=== PATIENT | female | born 1990 ===

== ENCOUNTER 2018-03-31 20:43 | Emergency (ER) | payer SELFPAY ==
[2018-03-31 21:08] VITALS: PULSE 84; O2SAT 98
[2018-03-31 21:44] LABS: BASO % 0.5 % (0.0-2.0); EOS # 0.1 K/uL (0.0-0.7); EOS % 1.3 % (0.0-4.0); HEMOGLOBIN 13.2 g/dL (11.0-16.0); LYMPH # 2.3 K/uL (1.0-4.3); LYMPH % 27.3 % (20.0-40.0); MEAN CELL VOLUME 89.7 fL (81.0-99.0); MEAN CORPUSCULAR HEMOGLOBIN 31.2 pg (27.0-31.0); MEAN CORPUSCULAR HGB CONC 34.8 g/dL (33.0-37.0); MEAN PLATELET VOLUME 7.1 fL (7.2-11.7); MONO # 0.6 K/uL (0.0-0.8); MONO % 7.3 % (0.0-10.0); NEUT # 5.3 K/uL (1.8-7.0); NEUT % 63.6 % (50.0-75.0); RBC 4.25 Mil/uL (3.80-5.20); RED CELL DISTRIBUTION WIDTH 12.9 % (11.5-14.5); WHITE BLOOD COUNT 8.3 K/uL (4.8-10.8)
[2018-03-31 21:52] LABS: SQUAMOUS EPITHIAL 1 /hpf (0-5); URINE AMORPHOUS SEDIMENT MODERATE /ul (<OCC); URINE BILIRUBIN NEGATIVE (NEGATIVE); URINE BLOOD 2+ (NEGATIVE); URINE CLARITY Hazy (Clear); URINE COLOR Yellow (YELLOW); URINE GLUCOSE (UA) NORMAL (Normal); URINE LEUKOCYTE ESTERASE NEG Leu/uL (Negative); URINE PROTEIN NEGATIVE (NEGATIVE); URINE UROBILINOGEN NORMAL mg/dL (0.2-1.0)
--- NOTE | 2018-03-31 22:12 | C.PDOC ---
History Of Present Illness 27-year-old female, who is currently around 8 weeks , presents to the ED for evaluation of vaginal bleeding. Patient states she experienced vaginal bleeding two weeks ago, and was evaluated by her ENVIRONMENTAL STUDIES FACULTY MEMBER and told it was secon andrew to implantation. Patient states she had a normal ultrasound at her OB office two weeks ago. Patient notes she now has clots, and presents for further evaluation. Patient states this is her first . She denies abdominal pain, nausea, vomiting, dysuria, changes in bowel habits. Time Seen by Provider: 03/31/18 21:15 Chief Complaint (Nursing): Female Genitourinary History Per: Patient History/Exam Limitations: no limitations Onset/Duration Of Symptoms: Days Current Symptoms Are (Timing): Still Present Associated Symptoms: denies: Nausea, Vomiting, Diarrhea, Constipation, Urinary Symptoms Additional History Per: Patient Abnormal Vaginal Bleeding: Yes Past Medical History Reviewed: Historical Data, Nursing Documentation, Vital Signs Vital Signs: Last Vital Signs Temp 98.5 F 03/31/18 21:06 Pulse 84 03/31/18 21:06 Resp 18 03/31/18 21:06 BP 115/76 03/31/18 21:06 Pulse Ox 98 03/31/18 21:06 - Medical History PMH: No Chronic Diseases Surgical History: No Surg Hx Family History: States: Unknown Family Hx - Social History Hx Alcohol Use: No Hx Substance Use: No - Immunization History Hx Tetanus Toxoid Vaccination: No Hx Influenza Vaccination: No Hx Pneumococcal Vaccination: No Review Of Systems Constitutional: Negative for: Fever Cardiovascular: Negative for: Chest Pain Respiratory: Negative for: Cough, SOB with Excertion, Wheezing Gastrointestinal: Negative for: Nausea, Vomiting, Abdominal Pain, Diarrhea, Constipation Genitourinary: Positive for: Vaginal Bleeding. Negative for: Dysuria, Frequency Musculoskeletal: Negative for: Back Pain Physical Exam - Physical Exam Appears: Well, Non-toxic, No Acute Distress Skin: Normal Color, Warm, Dry Head: Atraumatic, Normacephalic Eye(s): bilateral: Normal Inspection Oral Mucosa: Moist Neck: Supple Chest: Symmetrical, No Deformity, No Tenderness Cardiovascular: Rhythm Regular, No Murmur Respiratory: Normal Breath Sounds, No Rales, No Rhonchi, No Wheezing Gastrointestinal/Abdominal: Soft, No Tenderness, No Guarding, No Rebound Back: Normal Inspection, No CVA Tenderness Pelvic: Other (deferred) Extremity: Normal ROM, Capillary Refill (less than 2 seconds ) Neurological/Psych: Oriented x3, Normal Speech, Normal Cognition Gait: Steady ED Course And Treatment - Laboratory Results Result Diagrams: 03/31/18 21:39 O2 Sat by Pulse Oximetry: 98 (on RA) Pulse Ox Interpretation: Normal Medical Decision Making Medical Decision Making: Progress: Bloodwork, urinalysis, and transvaginal ultrasound ordered. 11:01PM U/S shows "single IUP with gestational age measuring 6 weeks 1 day by CRL. No f etal heart motion is detected, suspicious for demise. Right ovarian corpus luteal cyst." BHC, Blood type O+ Used short order fry cook to explain to patient and my concern for demise/miscarriage. They understand the need to follow-up with business reporting developer for further evaluation and repeat bhcg and ultrasound. Disposition - Disposition Disposition: HOME/ ROUTINE Disposition Time: 23:05 Condition: GOOD Additional Instructions: Follow-up with your grey tender within 2-3 days. Return to ED if condition worsens. Instructions: Threatened Miscarriage Forms: [email or web address] (Greenlandic) - Clinical Impression Clinical Impression: Threatened miscarriage - Scribe Statement The provider has reviewed the documentation as recorded by the Scribe (Christine Romero) Provider Attestation: All medical record entries made by the Scribe were at my direction and personally dictated by me. I have reviewed the chart and agree that the record accurately reflects my personal performance of the history, physical exam, medical decision making, and the department course for this patient. I have also personally directed, reviewed, and agree with the discharge instructions and disposition.
[2018-04-01 00:13] VITALS: BP 120/72; RESP 20; TEMP 98.6
--- NOTE | 2018-04-01 11:30 | US ---
Date of service: 03/31/2018 PROCEDURE: OB Pelvic Ultrasound HISTORY: , bleeding COMPARISON: None available. FINDINGS: UTERUS: Single intrauterine gestation. CRL measures 0.41 cm equivalent to 6 weeks and 1 day of gestational age. cardiac activity is not documented on the current examination. Gestational sac diameter measures 1.71 cm equivalent to 6 weeks and 0 days of gestational age. age (Ultrasound estimated): 6 weeks and 1 day Date of delivery (Ultrasound estimated) : 11/23/2018 Mariia-gestational hemorrhage: None. Uterus measures 8.8 x 4.6 x 5.5 cm. No mass CERVIX: Long and closed. No cervical abnormality seen. RIGHT OVARY: Measures 2.7 x 1.8 x 2.4 cm. No mass. Normal flow. There is a 1.2 x 1.1 x 1.3 cm corpus luteum cyst. LEFT OVARY: Measures 2.0 x 1.6 x 1.9 cm. No mass. Normal flow. FREE FLUID: None. OTHER FINDINGS: None. IMPRESSION: Single intrauterine gestational sac with mean gestational age of 6 weeks and 1 day. cardiac activity is not documented on the current examination. demise is a consideration given discrepancy with the clinical dates however correlation with serial beta HCG levels and short-term ultrasound follow-up in 24-36 hours is recommended. A preliminary report was provided by [facility]. Important findings were discussed with ANTWAN Hernandez in the ER on 04/01/2018 at 11:20 a.m.
== END 2018-04-01 00:11 | disposition home or self-care (01) ==
LOC: C.ER 20:43
DX: O20.0 Threatened abortion (principal); Z3A.01 Less than 8 weeks gestation of pregnancy